=== PATIENT | male | born 1990 | race Caucasian/White ===

== ENCOUNTER 2019-04-26 08:58 | Emergency (ER) | payer OTHER ==
--- NOTE | 2019-04-26 09:05 | ED Physician Documentation ---
General Adult - HISTORIAN Historian: patient - HPI Stated Complaint: chest pain Chief Complaint: General Adult Onset: hours Timing: still present Severity: moderate Further Comments: yes (Pt is a 28 yo male with c/o chest pain. Pt denies any PMHx. He takes no meds. Pt had chest pain, L arm numbness, dizziness, nausea. Pt not complaining of sob. Pt has had several similar, less severe episodes, over the past months.) - ROS CONST: weakness EYES/ENT: none CVS/RESP: chest pain GI/: nausea MS/SKIN/LYMPH: none - PAST HX Past History: none Allergies/Adverse Reactions: Allergies Allergy/AdvReac Type Severity Reaction Status Date / Time No Known Allergies Allergy Verified 04/26/19 09:17 Home Medications: Ambulatory Orders Medication Instructions Recorded NK 12/26/15 - SOCIAL HX Smoking History: cigarettes Alcohol Use: occasionally Drug Use: none - FAMILY HX Family History: Yes (CAD) - VITAL SIGNS Vital Signs: Vital Signs Temp Pulse Resp BP Pulse Ox 146/97 06/03/16 00:33 - REVIEWED ASSESSMENTS Nursing Assessment Reviewed: Yes Vitals Reviewed: Yes Progress - Progress Progress: ASA 324 mg po Cardizem 20 mg IV, then cardizem drip titrated to 7 mg/hour. HR 140's --> 90's Transfer to [facility], Dr. Erasto Abreu. - EKG/XRAY/CT EKG: rhythm (Afib w RVR, vent rate = 116) XRAY: chest (neg) General Adult Physical Exam - PHYSICAL EXAM GENERAL APPEARANCE: moderate distress EENT: pharynx normal NECK: normal inspection, supple RESPIRATORY: no resp distress CVS: irregularly irregular rhy, tachycardia ABDOMEN: soft, no organomegaly, normal bowel sounds BACK: normal inspection, no CVA tenderness SKIN: warm/dry, normal color EXTREMITIES: non-tender, normal range of motion, no evidence of injury, other (no calf tenderness) NEURO: oriented X3, motor nml, sensation nml Discharge Clincal Impression: Atrial fibrillation with RVR Referrals: Gurpreet Gonzalez MD [Primary Care Provider] - Condition: Stable Disposition: XFER SHT-TRM HOSP Decision to Admit: NO Decision Time: 10:44
[2019-04-26] MEDS: dilTIAZem HCL 25 MG/5 ML VIAL IVP ONE (09:22)
[2019-04-26 09:23] LABS: BASOPHILS % 0.6 % (0.0-1.5)
[2019-04-26 09:24] LABS: NEUTROPHILS # 3.4 # k/uL (1.4-7.7)
[2019-04-26] MEDS: ASPIRIN 81 MG CHEW TAB PO ONE (09:28)
[2019-04-26] MEDS: 0.9 % SODIUM CHLORIDE 100 ML IV ONE (09:35)
[2019-04-26 09:49] LABS: eGFR (Non-African) > 60
--- NOTE | 2019-04-26 09:50 | Diagnostic Imaging Report ---
ELSIE HERNANDEZ [facility] [id number] [facility] [address] [address] Report Submission Date: Apr 26, 2019 9:47:41 AM CDT Patient Study Name: DENNIS MANNING Date: Apr 26, 2019 9:24:21 AM CDT Modality Type: DX Gender: M Description: CHEST 1VIEW : 86 Institution: [facility] Physician: ELSIE HERNANDEZ Exam: AP chest. History: Chest pain. No previous studies are available for comparison. Lung santos are well aerated without roseline consolidation or effusion. Heart and mediastinal contour are normal. No bony abnormalities are identified. Impression: No roseline consolidation or effusion. Electronically signed on Apr 26, 2019 9:47:41 AM CDT by: John LEY
[2019-04-26] MEDS: dilTIAZem HCL 25 MG/5 ML VIAL ONE (10:08)
[2019-04-26 12:41] VITALS: BP 127/82
== END 2019-04-26 11:10 | disposition short-term general hospital (02) ==
LOC: ED 08:58
DX: I48.91 Unspecified atrial fibrillation (principal)
CPT/HCPCS: 71045; 80053; 82550; 84484; 85025; 85610; 85730; 93005; 96374; 99284; J3490; S1016